=== PATIENT | female | born 1975 | race Caucasian/White ===

== ENCOUNTER 2021-12-17 15:05 | Inpatient (IN) ==
[2021-12-17 16:17] LABS: Basophils % 0.4 %; Eosinophils # 0.1 K/mcL (0.0-0.6); Eosinophils % 1.3 %; Hematocrit 40.5 % (35.3-44.9); Immature Granulocytes % 0.1 % (0-4); Lymphocytes # 2.4 K/mcL (0.6-4.6); Lymphocytes % 28.2 %; Mean Corpuscular HGB Conc 32.1 g/dL (31.6-35.5); Mean Corpuscular Hemoglobin 28.9 pg (28.0-33.3); Mean Platelet Volume 9.3 fL (9.4-12.4); Monocytes # 0.5 K/mcL (0.0-1.3); Monocytes % 5.6 %; Neutrophils # 5.5 K/mcL (1.6-8.9); Platelet Count 304 K/mcL (140-400); Red Cell Distribution Width 13.6 % (11.5-14.5); Segmented Neutrophils % 64.4 %; White Blood Count 8.6 K/mcL (4.3-11.1)
[2021-12-17 17:04] LABS: Acetaminophen < 10 mcg/mL (10-20); Alanine Aminotransferase 13 Units/L (7-52); Albumin 4.1 g/dL (3.5-5.7); Albumin/Globulin Ratio 1.5 (1.1-2.2); Alkaline Phosphatase 70 Units/L (34-104); Aspartate Amino Transferase 16 Units/L (13-39); BUN/Creatinine Ratio 8 (6-26); Bilirubin,Direct 0.1 mg/dL (0.0-0.2); Bilirubin,Indirect 0.3 mg/dL (0.0-1.0); Bilirubin,Total 0.4 mg/dL (0.3-1.0); Blood Urea Nitrogen 7 mg/dL (6-20); Calcium 8.8 mg/dL (8.6-10.3); Carbon Dioxide 27 mEq/L (23-29); Chloride 102 mEq/L (98-107); Ethanol < 10 mg/dL (Less than 10); Globulin 2.8 g/dL (2.4-3.5); Glucose 111 mg/dL (70-105); Osmolality,Calculated 283 (280-300); Potassium 3.8 mEq/L (3.5-5.1); Salicylate < 2.5 mg/dL (15.0-30.0); Sodium 137 mEq/L (136-145); Total Protein 6.9 g/dL (6.4-8.9)
[2021-12-17 18:59] LABS: Amphetamine Screen,Urine Positive ng/mL (Cutoff=1000); Barbiturate Screen,Urine Negative ng/mL (Cutoff=200); Benzodiazepines Screen,Urine Positive ng/mL (Cutoff=200); Cannabinoid Screen,Urine Positive ng/mL (Cutoff = 50); Cocaine Screen,Urine Negative ng/mL (Cutoff= 300); Opiate Screen,Urine Negative ng/mL (Cutoff=300); Phencyclidine Screen,Urine Negative ng/mL (Cutoff=25)
[2021-12-17 19:02] LABS: Amorphous Sediment,Urine Few per hpf (None-Few); Bilirubin,Urine Negative (Negative); Blood,Urine Negative (Negative); Clarity,Urine Ex.Turbid (Clear); Color,Urine Yellow (Yellow); Glucose,Urine (UA) Normal (Normal); Ketones,Urine Negative (Negative); Leukocyte Esterase,Urine Negative (Negative); Nitrite,Urine Negative (Negative); PH,Urine 5.5 pH Units (5.0-8.0); Protein,Urine Trace mg/dL (Neg-Trace); Specific Gravity,Urine 1.021 (1.010-1.025); Squamous Epithelial Cell,Urine Few per hpf (None-Few); Urobilinogen,Urine Normal (Normal)
[2021-12-17 23:07] LABS: Influenza A PCR Negative (Negative); Influenza B PCR Negative (Negative); Resp. Syncytial Virus PCR Negative (Negative)
[2021-12-17 23:10] LABS: SARS-CoV-2 by PCR (In House) Negative (Negative)
[2021-12-17] MEDS ORDERED: traZODone 50 MG TABLET PO PRN (23:49)
[2021-12-17] MEDS ORDERED: Haloperidol Lactate 5 MG/ML VIAL IM PRN (23:49)
[2021-12-17] MEDS ORDERED: *HR* LORazepam 1 MG TABLET PO PRN (23:49)
[2021-12-17] MEDS ORDERED: Acetaminophen 325 MG TABLET PO PRN (23:49)
[2021-12-17] MEDS ORDERED: *HR* LORazepam 2 MG/ML VIAL IM PRN (23:49)
[2021-12-17] MEDS ORDERED: haloperidoL 5 MG TABLET PO PRN (23:49)
[2021-12-18] MEDS ORDERED: *HR* LORazepam 1 MG TABLET PO ONE (09:57)
[2021-12-18] MEDS ORDERED: Venlafaxine XR (24 HR) 150 MG CAP.ER.24H PO SCH (12:00)
[2021-12-18] MEDS ORDERED: Mag Hydrox/Al Hydrox/Simeth 30 ML UDC PO PRN (13:36)
[2021-12-18] MEDS ORDERED: MOM Conc 10 ML UD.LIQ PO PRN (13:36)
[2021-12-18] MEDS: BuPROPion XL (24 HR) 150 MG TABLET PO SCH (13:59)
[2021-12-18] MEDS: Venlafaxine XR (24 HR) 75 MG CAP.ER.24H PO SCH (14:26)
[2021-12-18] MEDS: ALPRAZolam 1 MG TABLET PO PRN ×2 (14:26→20:11)
[2021-12-18] MEDS: traZODone 50 MG TABLET PO PRN (21:17)
[2021-12-19] MEDS ORDERED: Venlafaxine XR (24 HR) 75 MG CAP.ER.24H PO SCH (09:00)
[2021-12-19] MEDS: Venlafaxine XR (24 HR) 75 MG CAP.ER.24H PO SCH (09:59)
[2021-12-19] MEDS: BuPROPion XL (24 HR) 150 MG TABLET PO SCH (09:59)
[2021-12-19] MEDS: Ibuprofen 600 MG TABLET PO PRN ×2 (09:59→21:02)
[2021-12-19] MEDS: ALPRAZolam 1 MG TABLET PO PRN ×2 (13:06→20:04)
[2021-12-19] MEDS: traZODone 50 MG TABLET PO PRN (21:01)
[2021-12-20] MEDS: Venlafaxine XR (24 HR) 150 MG CAP.ER.24H PO SCH (09:07)
[2021-12-20] MEDS: ALPRAZolam 1 MG TABLET PO PRN ×2 (09:07→18:11)
[2021-12-20] MEDS: BuPROPion XL (24 HR) 150 MG TABLET PO SCH (09:07)
[2021-12-20] MEDS: traZODone 50 MG TABLET PO PRN (20:37)
[2021-12-21] MEDS: Venlafaxine XR (24 HR) 150 MG CAP.ER.24H PO SCH (09:02)
[2021-12-21] MEDS: BuPROPion XL (24 HR) 150 MG TABLET PO SCH (09:02)
[2021-12-21] MEDS: ALPRAZolam 1 MG TABLET PO PRN ×2 (11:03→19:19)
[2021-12-21] MEDS: Ibuprofen 600 MG TABLET PO PRN (16:10)
[2021-12-21 19:44] VITALS: BP 154/86; PULSE 92; TEMP 98; O2SAT 95
[2021-12-21] MEDS: traZODone 50 MG TABLET PO PRN (20:46)
== END 2021-12-21 23:59 | disposition home or self-care (01) | DRG 817 ==
LOC: EMEROOARM 15:05 → 1ANU 23:27 → INTOOBSV 23:27 → 1ANU 12-18 00:37
PROVIDERS: ADMIT Psychiatry & Neurology Psychiatry; ATTEND Psychiatry & Neurology Psychiatry